=== PATIENT | male | born 1955 | race Two or more races ===

== ENCOUNTER 2020-02-13 15:02 | Inpatient (IN) | payer MEDICAID ==
[~2020-02-13] VITALS: Ht 167.6 cm; Wt 66.7 kg
--- NOTE | 2020-02-13 15:02 | NUR ---
PT BIBRA FROM CONSTRUCTION SITE C/O R HIP AND LEG PAIN S/P GLF. PT IS AAOX4, NOT IN RESPIRATORY DISTRESS, HOOKED TO NUCLEAR FUELS RESEARCH ENGINEER, KEPT RESTED AND COMFORTABLE. AWAITING ER MD CHI.
--- NOTE | 2020-02-13 15:20 | NUR ---
IV LINE ESTABLISHED BLOOD DRAWN AND SENT TO LAB.
--- NOTE | 2020-02-13 15:46 | NUR ---
SEEN AND EXAMINED BY .
[2020-02-13] MEDS ORDERED: FENTANYL PF 100MCG/2ML AMPUL ONE (15:49)
[2020-02-13] MEDS ORDERED: TDAP [DIPH/PERTUSSIS/TET] 0.5 ML VIAL IM ONE ×2 (15:49→16:00)
--- NOTE | 2020-02-13 15:54 | NUR ---
PT IS WHEELED TO CT SCAN VIA [facility].
[2020-02-13] MEDS ORDERED: FENTANYL PF 100MCG/2ML AMPUL IM ONE (16:00)
--- NOTE | 2020-02-13 17:01 | NUR ---
CALLED ORTHO [phone] ITS JAQUELIN
[2020-02-13] MEDS ORDERED: LIDOCAINE 1%-EPI 1:100,000 20 ML VIAL ONE (17:05)
--- NOTE | 2020-02-13 17:24 | NUR ---
AT BEDSIDE FOR SUTURING.
--- NOTE | 2020-02-13 17:35 | NUR ---
COVID SWAB OBTAINED AND SENT TO LAB.
[2020-02-13 17:59] LABS: BASOPHILS % (AUTO) 0.6 % (0.0-2.0); EOSINOPHILS % (AUTO) 0.4 % (0.0-6.0); HEMATOCRIT 32 % (39-51); HEMOGLOBIN 10.5 g/dL (13.5-17.5); LYMPHOCYTES # (AUTO) 2.3 /CMM (0.8-4.8); LYMPHOCYTES % (AUTO) 27.6 % (20.0-44.0); MEAN CORPUSCULAR HGB CONC 33 g/dl (31.0-36.0); MEAN CORPUSCULAR VOLUME 100 fL (80-96); MONOCYTES # (AUTO) 0.6 /CMM (0.1-1.30); MONOCYTES % (AUTO) 6.8 % (2.0-12.0); NEUTROPHILS # (AUTO) 5.5 /CMM (1.8-8.9); NEUTROPHILS % (AUTO) 64.6 % (43.0-81.0); PLATELET COUNT (AUTO) 212 /CMM (150-450); RED BLOOD CELL COUNT(AUTO) 3.16 MIL/uL (4.5-6.0); WHITE BLOOD COUNT (AUTO) 8.5 K/uL (4.3-11.0)
[2020-02-13] MEDS ORDERED: HYDROMORPHONE 1 MG/1 ML DISP.SYRIN IV ONE (18:00)
[2020-02-13 18:09] LABS: CALCIUM, SERUM 7.9 mg/dL (8.5-10.1); CREATININE 0.7 mg/dL (0.6-1.3); POTASSIUM 3.2 mmol/L (3.5-5.1)
[2020-02-13] MEDS ORDERED: HYDROMORPHONE 1 MG/1 ML DISP.SYRIN ONE (18:22)
--- NOTE | 2020-02-13 18:30 | NUR ---
[facility] PAGED
[2020-02-13] MEDS ORDERED: IV NS 0.9% 500 ML BAG IV ONE (19:00)
--- NOTE | 2020-02-13 19:21 | NUR ---
RESTING COMFORTABLY. VSS.
--- NOTE | 2020-02-13 19:43 | NUR ---
ER TALKING TO MICHOACANO LONDON DNP REGARDING PT ADMISSION.
--- NOTE | 2020-02-13 19:51 | NUR ---
ASKED PT WHERE HE LIVES, PT STATED IN AN APT IN [place]. I ASKED PT TO PROVIDE ADDRESS, PT STATED HE DOES NOT REMEMEBR,.
--- NOTE | 2020-02-13 19:53 | NUR ---
M/S 308-2
--- NOTE | 2020-02-13 20:27 | NUR ---
REPORT GIVEN TO M/S ALFA SALAZAR. WILL TRANSPORT PT TO M/S 308-2.
[2020-02-13 20:30] VITALS: BP 99/54
--- NOTE | 2020-02-13 20:30 | NUR ---
MS/RN NEW ADMISSION NOTES RECEIVED PATIENT ON A GURNEY ACCOMPANIED BY ER ATTENDANT, IVORIAN SPEAKING, ALERT X2, RESPIRATIONS EVEN AND UNLABORED, WITH RIGHT HIP FX DIAGNOSIS BY MD LONDON DUE TO FALL IN CONSTRUCTION SITE WHILE HE WAS PUTTING ON HIS CLOTHES AND THAT HE DRANK SOME ALCOHOL REPORTED, WITH NO HOME MEDICATION REPORTED, POTASSIUM LEVEL AT 3.2, DVT SCORE OF 5 AND MD ORDER FOR NPO AT MIDNIGHT, BELONGINGS CHECKED WITH RING, WATCH AND SOME ESPINAL THAT PATIENT WANTS TO BE KEPT AT BEDSIDE, ALSO HAS CELLPHONE, PAIN OF 8 TO LEVEL. MD ACCEPTING IS MICHOACANO LONDON. BED LOCKED, CALL LIGHTS WITHIN REACH, ROOM ORIENTATION PROVIDED. BED ALARM ON.
--- NOTE | 2020-02-13 21:00 | NUR ---
MS/RN NOTES IV SITE ON LEFT AC PATENT WITH IV NS TO INFUSE AT 75 ML/HR PER MD.
--- NOTE | 2020-02-13 21:51 | NUR ---
MS/RN NOTES PATIENT WITH ORDER TO INSERT MICHELE CATHETER DUE TO FX ON HIP.
[2020-02-13] MEDS ORDERED: IV NS 0.9% 1,000 ML IV PRN (22:05)
[2020-02-13] MEDS ORDERED: ZOLPIDEM TARTRATE 5 MG TABLET PO PRN (22:30)
[2020-02-13] MEDS ORDERED: MAG HYDROX/AL HYDROX/SIMETH 30 ML UDC PO PRN (22:30)
[2020-02-13] MEDS ORDERED: MAGNESIUM HYDROXIDE 30 ML UDC PO PRN (22:30)
[2020-02-13] MEDS ORDERED: ONDANSETRON HCL/PF 4 MG/2 ML VIAL IVP PRN (22:30)
[2020-02-13] MEDS ORDERED: Z GUARD REMEDY 2 OZ OINT TP PRN (22:30)
[2020-02-13] MEDS ORDERED: ACETAMINOPHEN 325 MG TABLET PO PRN (22:30)
--- NOTE | 2020-02-13 22:35 | NUR ---
PER MD ORDER DVT SCORE AT 5, ORDER LOVENOX 40 SQ EVERY 12 HR. AND POTASSIUM LEVEL AT 3.2 TO ORDER KDUR 40 MEQ PO. NPO AT MIDNIGHT.
[2020-02-13] MEDS ORDERED: POTASSIUM CHLORIDE 20 MEQ TAB.PRT.SR PO ONE (23:00)
[2020-02-13] MEDS: HYDROCODONE/APAP 10/325MG TABLET PO PRN (23:28)
--- NOTE | 2020-02-13 23:29 | NUR ---
norco 10-325 mg po given with water, potassium kdur meq given po with orange juice able to tolerate. to monitor
--- NOTE | 2020-02-14 01:05 | NUR ---
UNABLE TO INSERT MICHELE AT THIS TIME, PATIENT ABLE TO URINATE WITH URINAL OF 400 ML TOTAL.
[2020-02-14] MEDS ORDERED: CEFAZOLIN 1 GM ONE (01:15)
[2020-02-14] MEDS: HYDROMORPHONE INJ 2 MG/ML DISP.SYRIN IV PRN ×5 (01:51→23:51)
--- NOTE | 2020-02-14 01:53 | NUR ---
MS/RN NOTES PATIENT WITH SEVERE PAIN, MOANING AND GUARDING REPORTED AND OBSERVED, BLOOD PRESSURE AT 130/78, ADMINISTERED PAIN MEDICATION DILAUDID 1 MG/0.5 ML PER ORDER TO MONITOR.
[2020-02-14] MEDS: CEFAZOLIN 1 GM in IV D5W 50 ML IV SCH ×3 (04:02→20:56)
--- NOTE | 2020-02-14 06:16 | NUR ---
308-2 MS/RN NOTES PATIENT ALERT, ORIENTED, CROATIAN SPEAKING, ATTENDED ALL NEEDS, ON ROOM AIR, PAIN MANAGED AND CONTROLLED, SAFETY MEASURES FOLLOWED, BED LOCKED, CALL LIGHTS WITHIN REACH, NPO AND TO ENDORSE TO AM RN FOR PANCHO.
[2020-02-14 06:49] LABS: BASOPHILS % (AUTO) 0.4 % (0.0-2.0); EOSINOPHILS % (AUTO) 0.7 % (0.0-6.0); HEMATOCRIT 30 % (39-51); LYMPHOCYTES # (AUTO) 1.9 /CMM (0.8-4.8); LYMPHOCYTES % (AUTO) 20.3 % (20.0-44.0); MEAN CORPUSCULAR HGB CONC 34 g/dl (31.0-36.0); MEAN CORPUSCULAR VOLUME 99 fL (80-96); MONOCYTES # (AUTO) 0.7 /CMM (0.1-1.30); MONOCYTES % (AUTO) 7.5 % (2.0-12.0); NEUTROPHILS # (AUTO) 6.5 /CMM (1.8-8.9); NEUTROPHILS % (AUTO) 71.1 % (43.0-81.0); PLATELET COUNT (AUTO) 205 /CMM (150-450); RED BLOOD CELL COUNT(AUTO) 3.02 MIL/uL (4.5-6.0); WHITE BLOOD COUNT (AUTO) 9.1 K/uL (4.3-11.0)
--- NOTE | 2020-02-14 07:49 | NUR ---
MS/RN Opening note Patient received from caustic cresylate shift superintendent. A/0 X2-3, npo at this time until seen by orthopedic surgeon. Heplock to left AC flushing well with normal saline. Vital signs stable, no fevers noted. Call light within reach, aware of how to use and call for help. Bed in low setting, side rails x3 in upright position, will continue to monitor and ensure safety.
[2020-02-14 08:00] VITALS: BP 120/78
[2020-02-14] MEDS: DOCUSATE SODIUM 100 MG CAPSULE PO SCH ×2 (08:06→16:16)
--- NOTE | 2020-02-14 08:07 | NUR ---
MS/trailer steerer held MS/RN Lovenox held Lovenox held until patient seen by surgeon.
[2020-02-14] MEDS ORDERED: ENOXAPARIN SODIUM 40 MG/0.4 ML DISP.SYRIN SQ SCH (09:00)
[2020-02-14] MEDS ORDERED: POTASSIUM CHLORIDE 20 MEQ TAB.PRT.SR PO SCH (09:00)
[2020-02-14 09:17] LABS: ALBUMIN 2.5 g/dL (3.4-5.0); BILIRUBIN,TOTAL 0.5 mg/dL (0.2-1.0); CALCIUM, SERUM 7.7 mg/dL (8.5-10.1); CREATININE 0.7 mg/dL (0.6-1.3); MAGNESIUM 1.8 mg/dL (1.8-2.4); PHOSPHORUS 3.5 mg/dL (2.5-4.9); POTASSIUM 4.1 mmol/L (3.5-5.1); TOTAL PROTEIN, SERUM 6.3 g/dL (6.4-8.2)
[2020-02-14 09:33] LABS: THYROID STIMULATING HORMONE 5.089 uIU/mL (0.358-3.74)
[2020-02-14 09:52] LABS: IRON, SERUM 52 ug/dl (50-175); TOTAL IRON BINDING CAPACITY 198 ug/dl (250-450)
[2020-02-14 10:38] LABS: FERRITIN 889 ng/mL (8-388)
--- NOTE | 2020-02-14 11:00 | NUR ---
MS/RN S/B Guerrero Peters Seen by ortho - patient to be scheduled for surgery, orders for consent yet to be given. Diet ordered, will call kitchen for early lunch tray.
--- NOTE | 2020-02-14 13:17 | NUR ---
10:05am This SW met with the patient at bedside for a homeless consult. Patient was alert and oriented x4. Patient is a 64-year-old male, primarily [place] speaking. This SW conducted the manager social assessment in [place]. Patient presented to [facility] ER by rescue ambulance for hip and leg pain, patient is currently in [facility]. Patient confirmed demographics on face sheet including date of . Patient reported to this SW that he does not know his current address as he moved to this new apartment 2 months ago. Patient reports his apartment is on [address]. Patient reports that he is living in a very small room with a foldable bed, an electrical stove top, and a bathroom. Patient reports nothing else in his new home. Patient reports that he moved in 2 months ago, currently paying $150 a month in rent following his job loss four months ago, due to COVID-19. Patient resides alone, independent with ADLs and IADLs. Patient reports that he has 3 children in [place], 1 child in [place], and 3 children in [facility]. Patient provided this SW with childrens names in [place]: Ry, Shanae, and Julia. Patient could not provide contact information for his children stating, No lo suzango, esta en stephon agenda en ma apartamento (I dont have their numbers, they are in an agenda in my apartment). Patient states that he asks for money from his children and his children provide it to him. Patient explained to this SW that after his job loss, he cannot obtain a job as patient feels employers only see his sutton hair and age on an application solo [facility] ma edad. This SW asked the patient if he receives any type of assistance from the government. Patient reports to this SW that he does not qualify due to his residency status. Patients tone changed when he stated that this loss has been difficult for him and wants more. This SW acknowledged this by affirming the patients desires to do better. Patient informed this SW that he does drink alcohol, approximately 3-4 beers a day, mostly Thursday and Sundays (you need to clarify this, is it daily? Or is it Saturdays and Sundays?). Patient reports that he has diabetes and for this reason, he has tried to cut down his consumption. Patient denies drug use. Patient reports cigarette use, reporting a 24-pack of cigarettes can last him 2-3 days. Patient did inform this SW that it is a part of his daily routine with his first cup of coffee every morning. Patient did express wanting to stop but did not know what the best option for him is. Patient denies visual and auditory hallucinations. Patient denies suicidal and homicidal ideations. Patient asked this SW for resources including food martinez/pantries for him to have at least some canned goods in his home and resources to stop smoking in [place]. This SW to return with those resources for the patient. Activities Coordinator to remain available for all needs regarding this patient.
--- NOTE | 2020-02-14 15:05 | NUR ---
MS/RN Consent Patient consented for surgery tomorrow (IM rodding of right hip). All three consent forms signed and placed in front of chart. Reinforced to patient that he will by NPO from midnight.
[2020-02-14 16:00] VITALS: BP 136/76
--- NOTE | 2020-02-14 18:26 | NUR ---
MS/RN End note Patient remains in stable condition, no new needs expressed at this time. Pain well controlled, has turned and repsoitioned with some assist as much as pain allows. Consent forms signed ready for surgert tomorrow. Will endorse to shift foreman.
--- NOTE | 2020-02-14 19:23 | NUR ---
Patient is alert, speaks Hungarian only. States he is currently living alone in a rental room. Prior to admission, he was ambulatory and independent with adl's. Has no DME or homehealth reported. Current plan for hip fx surgery. Will need DME and rehab post surgery, patient is currently pending Medical only. Addendum: 02/14/20 at 1924 by ALVIN JONES RN Amended: Links added.
[2020-02-14 20:00] VITALS: BP 112/78
--- NOTE | 2020-02-14 20:00 | NUR ---
MS/RN OPENING NOTES PATIENT IN BED, AWAKE, ALERT X3, [place] SPEAKING ON ROOM AIR, HAD EATEN DINNER, ABLE TO DRINK FLUIDS, REQUIRE ASSISTANCE FOR SAFETY PATIENT HAS RIGHT FEMUR FRACTURE, PLAN FOR SURGERY SCHEDULED LORENZO AND CONSENT HAS BEEN SIGNED, NPO AFTER MIDNIGHT, PROCEDURE BY SURGEON ARCHANA ACUNA. MONITORED FOR ANY CHANGES, BED LOCKED, CALL LIGHTS WITHIN REACH IV SITE LEFT AC PATENT TO MONITOR.
--- NOTE | 2020-02-14 21:00 | NUR ---
IV SITE ON LEFT AC REMOVED DUE TO DISLODGE, REINSERTED ON DIFFERENT SITE ON RIGHT AC GAUGE 22 ONE TIME AND PATIENT TOLERATED WELL. PATENT WITH GOOD BLOOD RETURN.
--- NOTE | 2020-02-14 23:54 | NUR ---
MS/RN NOTES PATIENT ON SEVERE PAIN, MOANING GUARDING, REPORTED 10/10 PAIN ON RIGHT HIP. DIALUDID PRN 0.5ML/1MG IVP SLOW PUSH GIVEN TO MONITOR,B/P CHECK AT 132/77, PULSE RATE AT 110.TO MONITOR EFFECTIVENESS.
[2020-02-15] VITALS (8 sets, daily range): BP systolic 102–133; BP diastolic 59–84
[2020-02-15] MEDS: CEFAZOLIN 1 GM in IV D5W 50 ML IV SCH ×2 (04:09→12:39)
[2020-02-15] MEDS: HYDROMORPHONE INJ 2 MG/ML DISP.SYRIN IV PRN ×4 (04:26→23:32)
--- NOTE | 2020-02-15 04:30 | NUR ---
MS/RN NOTES PATIENT AWOKEN FROM SLEEP WITH SEVERE PAIN, MOANING AND GRIMACING. 10/ LEVEL, B/P CHECK AT 117/73 AND PULSE 101. MONITOR NEEDED MEDICATION DILAUDID 0.5 ML AT 1 MG ADMINISTERED.
--- NOTE | 2020-02-15 06:08 | NUR ---
308-2 MS/RN NOTES PATIENT ALERT, ORIENTED X3, SPANINSH SPEAKING ABLE TO VERBALZIED NEEDS, PAIN MANAGED AND EFFECTIVE, IV SITE ON RIGHT UPPER ARM W/ NO S/S OF REDNESS, NPO AFTER MIDNIGHT, ATTENDED ALL NEEDS, SAFETY MEASURES PLACED,BED LOCKED, CALL LIGHTS WITHIN REACH, EDUCATED ON PAIN MEDICATION SIDE EFFECT. VERBALIZED UNDERSTANDING,BED LOCKED, CALL LIGHTS WITHIN REACH.WILL ENDORSE TO AM RN FOR PANCHO.
[2020-02-15 07:21] LABS: BASOPHILS # (AUTO) 0.1 /CMM (0.0-0.2); BASOPHILS % (AUTO) 0.5 % (0.0-2.0); EOSINOPHILS % (AUTO) 0.9 % (0.0-6.0); HEMATOCRIT 27 % (39-51); HEMOGLOBIN 9.1 g/dL (13.5-17.5); LYMPHOCYTES # (AUTO) 1.9 /CMM (0.8-4.8); LYMPHOCYTES % (AUTO) 17.2 % (20.0-44.0); MEAN CORPUSCULAR HGB CONC 34 g/dl (31.0-36.0); MEAN CORPUSCULAR VOLUME 99 fL (80-96); MONOCYTES # (AUTO) 0.9 /CMM (0.1-1.30); MONOCYTES % (AUTO) 8.3 % (2.0-12.0); NEUTROPHILS % (AUTO) 73.1 % (43.0-81.0); PLATELET COUNT (AUTO) 183 /CMM (150-450); RED BLOOD CELL COUNT(AUTO) 2.73 MIL/uL (4.5-6.0); WHITE BLOOD COUNT (AUTO) 10.9 K/uL (4.3-11.0)
--- NOTE | 2020-02-15 07:44 | NUR ---
MS RN OPENING NOTES RECEIVED PATIENT IN BED, ASLEEP. PATIENT BREATHING ON ROOM AIR; BREATHING IS EVEN AND UNLABORED; NO SOB NOTED AT THIS TIME. NO SIGNS OF PAIN SUCH FACIAL GRIMACING OR MOANING AT THE MOMENT. NPO SINCE MIDNIGHT. RAC IV ACCESS G # 22 PRESENT AND INTACT. SAFETY PRECAUTIONS IN PLACE; BED IN LOW POSITION AND LOCKED, RAILS UP X2, CALL LIGHT WITHIN REACH. WILL CONTINUE TO MONITOR PATIENT.
[2020-02-15 07:51] LABS: ALBUMIN 2.3 g/dL (3.4-5.0); BILIRUBIN,TOTAL 0.6 mg/dL (0.2-1.0); CALCIUM, SERUM 7.8 mg/dL (8.5-10.1); CREATININE 0.6 mg/dL (0.6-1.3); MAGNESIUM 1.8 mg/dL (1.8-2.4); PHOSPHORUS 2.9 mg/dL (2.5-4.9); POTASSIUM 3.8 mmol/L (3.5-5.1)
[2020-02-15] MEDS: DOCUSATE SODIUM 100 MG CAPSULE PO SCH ×2 (08:01→16:33)
[2020-02-15] MEDS ORDERED: IV NS 0.9% 1,000 ML IV PRN (09:30)
--- NOTE | 2020-02-15 11:28 | NUR ---
MS RN NOTES PATIENT IS KYRGYZ SPEAKING; WAS MOANING. ASKED IF HE WANTS PAIN MEDICATION PATIENT SAID "SI". WHEN ABOUT TO ADMINISTER PAIN MEDICATION PATIENT SAID NO. MEDICATION WASTED WITH 2 RNs.
--- NOTE | 2020-02-15 12:30 | NUR ---
MS RN NOTES PATIENT IN PAIN; R HIP. REQUESTING PAIN MEDICATION. PRN DILAUDID ADMINISTERED PER MD ORDER. WILL CONTINUE TO MONITOR.
[2020-02-15] MEDS ORDERED: FENTANYL PF 250MCG/5ML AMPUL ONE (17:59)
[2020-02-15] MEDS ORDERED: MIDAZOLAM HCL 2 MG/2ML VIAL ONE (17:59)
--- NOTE | 2020-02-15 18:56 | NUR ---
MS RN CLOSING NOTES PATIENT IN BED, AWAKE AND AWAITING SURGERY. PATIENT BREATHING ON ROOM AIR; BREATHING IS EVEN AND UNLABORED; NO SOB NOTED DURING THE SHIFT. PAIN MANAGED WITH PRN PAIN MEDICATION. NPO SINCE MIDNIGHT. RAC IV ACCESS G # 22 PRESENT AND INTACT INFUSING NS @ 75 MLS/HR. ALL NEEDS ATTENDED TO THROUGHOUT THE DAY. SAFETY PRECAUTIONS IN PLACE; BED IN LOW POSITION AND LOCKED, RAILS UP X2, CALL LIGHT WITHIN REACH. WILL ENDORSE TO CONTACT FINGER ASSEMBLER NURSE.
--- NOTE | 2020-02-15 19:19 | NUR ---
MS RN NOTES PATIENT IN PAIN 02/15 REQUESTING PAIN MEDICATION. PRN PAIN MEDICATION GIVEN PER MD ORDER.
--- NOTE | 2020-02-15 19:35 | NUR ---
MS RN NOTES RECEIVED ON BED A/O X3,MOANS IN PAIN ON RIGHT HIP,NPO STATUS,GOING FOR RIGHT HIP INTRA MEDULLARY RODDING,AWAITING TO BE BILL HIKER.SALINE LOCK RIGHT AC INTACT AND PATENT.NS AT 75ML/HR RATE IN PROGRESS.LAST PAIN MANAGEMENT GIVEN AT 1920.
--- NOTE | 2020-02-15 19:40 | NUR ---
MS RN NOTES CERTIFIED ADDICTION COUNSELOR BY SURGERY CREW AT THIS TIME
--- NOTE | 2020-02-15 22:30 | NUR ---
MS RN NOTES BACK FROM SURGERY,S/P RIGHT HIP INTRAMEDULLARY RODDING ,DRESSING INTACT AND DRY.ICE PACK IN PLACE ON SURGICAL SITE.MICHELE CATH IN PLACE DRAINING YELLOWISH OUTPUT.SALINE LOCK RIGHT AC INTACT AND PATENT.LEFT HAND SALINE LOCK INTACT AND DRY.
[2020-02-15] MEDS ORDERED: CEFAZOLIN 1 GM ONE ×2 (23:20→23:22)
--- NOTE | 2020-02-15 23:32 | NUR ---
MS RN NOTES PAIN MANAGEMENT C/O PAIN RIGHT HIP 10/10 ON PAIN SCALE.MEDICATED WITH DILAUDID 1MG IV ORDERED FOR SEVERE PAIN.
[2020-02-15] MEDS: CEFAZOLIN 1 GM VIAL IV SCH (23:39)
--- NOTE | 2020-02-15 23:45 | NUR ---
MS RN NOTES CLAIMED HE'S HUNGRY,GIVEN SANDWICH AND APPLE JUICE,ATE WELL.NEGATIVE FOR ASPIRATION
--- NOTE | 2020-02-16 | NUR ---
MS RN NOTES STARTED ON ANCEF 2MG IVPB X 2 DOSES,FIRST DOSE HUNG AT 2039.
[2020-02-16] MEDS: HYDROMORPHONE INJ 2 MG/ML DISP.SYRIN IV PRN ×4 (03:41→21:46)
--- NOTE | 2020-02-16 03:41 | NUR ---
MS RN NOTES C/O RIGHT HIP PAIN 9/10 ON PAIN SCALE,MEDICATED WITH DILAUDID 1MG IV ORDERED FOR SEVERE PAIN.
[2020-02-16 04:00] VITALS: BP 117/70
[2020-02-16] MEDS: CEFAZOLIN 1 GM VIAL IV SCH (05:00)
[2020-02-16] MEDS ORDERED: IV LR 1000 ML 1,000 ML IV PRN (05:30)
--- NOTE | 2020-02-16 06:32 | NUR ---
MS RN NOTES ON BED CALM AND QUIET,IVF LR AT 75ML/HR RATE IN PROGRESS,MAY CONVERT TO SALINE LOCK IF EATING.MICHELE CATH IN PLACE.LOVENOX 40MG SQ TO START POST OF DAY ONE.RIGHT HIP DRESSING DRY AND INTACT.PAIN MANAGEMENT EFFECTIVE.CALL LIGHT IN REACH,NEEDS ATTENDED.WILL ENDORSE TO DAY NURSE FOR PANCHO.
[2020-02-16 06:51] LABS: BASOPHILS % (AUTO) 0.2 % (0.0-2.0); EOSINOPHILS % (AUTO) 0.1 % (0.0-6.0); HEMATOCRIT 25 % (39-51); HEMOGLOBIN 8.4 g/dL (13.5-17.5); LYMPHOCYTES # (AUTO) 0.9 /CMM (0.8-4.8); LYMPHOCYTES % (AUTO) 11.4 % (20.0-44.0); MEAN CORPUSCULAR HGB CONC 34 g/dl (31.0-36.0); MEAN CORPUSCULAR VOLUME 99 fL (80-96); MONOCYTES # (AUTO) 0.5 /CMM (0.1-1.30); MONOCYTES % (AUTO) 5.9 % (2.0-12.0); NEUTROPHILS # (AUTO) 6.5 /CMM (1.8-8.9); NEUTROPHILS % (AUTO) 82.4 % (43.0-81.0); PLATELET COUNT (AUTO) 183 /CMM (150-450); WHITE BLOOD COUNT (AUTO) 7.9 K/uL (4.3-11.0)
[2020-02-16 07:00] LABS: CALCIUM, SERUM 7.6 mg/dL (8.5-10.1); CREATININE 0.7 mg/dL (0.6-1.3)
--- NOTE | 2020-02-16 07:30 | NUR ---
ms rn received on bed, awake,alert,oriented x3,not in any form of distress, respirations even and unlabored,no sob noted.bloom to gravity w/ yellowish urine output.s/p right hip sx, w/ dressing clean and dry, denies pain at this time, all needs attended.
[2020-02-16 08:00] VITALS: BP 114/74
[2020-02-16] MEDS: DOCUSATE SODIUM 100 MG CAPSULE PO SCH ×2 (09:10→17:07)
--- NOTE | 2020-02-16 09:20 | NUR ---
MS GRIMM BREAKFAST SERVED,DUE MEDS GIVEN,TOLERATED WELL.
[2020-02-16] MEDS ORDERED: DEXTROSE 50%-WATER 50 ML DISP.SYRIN IV PRN (11:00)
[2020-02-16] MEDS: BLOOD SUGAR DIAGNOSTIC 1 EACH STRIP IN SCH ×3 (11:36→21:10)
[2020-02-16] MEDS: INSULIN REGULAR, HUMAN 100 UNIT/ML 3 ML VIAL SQ PRN ×3 (11:38→21:22)
[2020-02-16 16:00] VITALS: BP 118/75
--- NOTE | 2020-02-16 18:16 | NUR ---
MS RN ON BED, NO DISTRESS NOTED ,ALL NEEDS ATTENDED.
--- NOTE | 2020-02-16 19:45 | NUR ---
MS RN NOTES RECEIVED ON BED EATING HI DINNER FOOD.SALINE LOCK RIGHT AC AND LEFT HAND INTACT AND PATENT.MICHELE CATH IN PLACE DRAINING YELLOWISH OUTPUT.S/P RIGHT HIP INTRAMEDULLARY RODDING YESTERDAY 02/[address] DYE[address]DRESSING INTACT AND DRY.RIGHT LOWER CAST INTACT ELEVATED ON PILLOWS.WILL CONTINUE TO MONITOR FOR PAIN MANAGEMENT.CALL LIGHT IN REACH,NEEDS ANTICIPATED.
[2020-02-16 20:00] VITALS: BP 121/69
[2020-02-16] MEDS ORDERED: ENOXAPARIN SODIUM 40 MG/0.4 ML DISP.SYRIN SQ SCH (21:00)
--- NOTE | 2020-02-16 21:30 | NUR ---
MS RN NOTES ACCU-CHECK BLOOD SUGAR CHECK 266,COVERED WITH HUMULIN R 6 UNITS PER SLIDING SCALE.
--- NOTE | 2020-02-16 21:46 | NUR ---
MS RN NOTES PAIN MANAGEMENT C/O PAIN ON RIGHT HIP AND RIGHT LOWER LEG 10/10 ON PAIN SCALE,,MEDICATED WITH DILAUDID 1MG IV ORDERED
[2020-02-17] MEDS: HYDROMORPHONE INJ 2 MG/ML DISP.SYRIN IV PRN ×2 (05:24→10:52)
--- NOTE | 2020-02-17 05:24 | NUR ---
MS RN NOTES PAIN MANAGEMENT C/O RIGHT HIP/LEG PAIN 9/10 ON PAIN SCALE.MEDICATED WITH DILAUDID 1MG IV ORDERED FOR SEVERE PAIN,REPOSITIONED.
--- NOTE | 2020-02-17 05:40 | NUR ---
MS RN NOTES ACCU-CHECK BLOOD SUGAR CHECK 338,HAS BEEN EATING AT NIGHT WITH BREAD AND JUICE.JOSUÉ COVER WITH HUMULIN R 8 UNITS PER SLIDING SCALE.
[2020-02-17] MEDS: BLOOD SUGAR DIAGNOSTIC 1 EACH STRIP IN SCH (05:44)
[2020-02-17] MEDS: INSULIN REGULAR, HUMAN 100 UNIT/ML 3 ML VIAL SQ PRN ×3 (05:46→16:50)
[2020-02-17 06:33] LABS: BASOPHILS # (AUTO) 0.2 /CMM (0.0-0.2); BASOPHILS % (AUTO) 2.3 % (0.0-2.0); EOSINOPHILS % (AUTO) 0.7 % (0.0-6.0); HEMATOCRIT 23 % (39-51); HEMOGLOBIN 7.7 g/dL (13.5-17.5); LYMPHOCYTES # (AUTO) 1.4 /CMM (0.8-4.8); LYMPHOCYTES % (AUTO) 17.6 % (20.0-44.0); MEAN CORPUSCULAR HGB CONC 34 g/dl (31.0-36.0); MEAN CORPUSCULAR VOLUME 99 fL (80-96); MONOCYTES # (AUTO) 0.9 /CMM (0.1-1.30); MONOCYTES % (AUTO) 11.4 % (2.0-12.0); NEUTROPHILS # (AUTO) 5.4 /CMM (1.8-8.9); PLATELET COUNT (AUTO) 218 /CMM (150-450); RED BLOOD CELL COUNT(AUTO) 2.28 MIL/uL (4.5-6.0); WHITE BLOOD COUNT (AUTO) 7.9 K/uL (4.3-11.0)
--- NOTE | 2020-02-17 06:45 | NUR ---
MS RN NOTES SLEPT WITH INTERVALS,PAIN MANAGEMENT ADMINISTERED.SALINE LOCK X2 INTACT AND PATENT,MICHELE CATH IN PLACE.DRESSING TO SURGICAL SITE INTACT AND DRY.POSSIBLE TRANSFER FOR HIGHER LEVEL OF CARE DUE TO COMPLEXITY OF OF RIGHT ANKLE FRACTURE,CASE MANAGEMENT LOOKING FOR A PLACE.WILL ENDORSE TO DAY NURSE FOR PANCHO.
[2020-02-17 07:05] LABS: ALBUMIN 1.9 g/dL (3.4-5.0); BILIRUBIN,TOTAL 0.5 mg/dL (0.2-1.0); CALCIUM, SERUM 7.7 mg/dL (8.5-10.1); CREATININE 0.7 mg/dL (0.6-1.3); MAGNESIUM 1.9 mg/dL (1.8-2.4); PHOSPHORUS 2.9 mg/dL (2.5-4.9); POTASSIUM 3.7 mmol/L (3.5-5.1); TOTAL PROTEIN, SERUM 5.7 g/dL (6.4-8.2)
--- NOTE | 2020-02-17 07:45 | NUR ---
MS/RN NOTE THE PATIENT IS RECEIVED IN BED. THE PATIENT IS ALERT AND ORIENTED X3. DENIES SOB. RESPIRATION REGULAR AND UNLABORED. IN ROOM AIR. DENIES PAIN. THE PATIENT IS IN NO APPARENT DISTRESS. THE PATIENT IS NOTED WITH RIGHT LOWER EXTREMITY SPLINT. NO S/S POOR CIRCULATION ON THE EXTREMITIES. DENIES TINGLING OR NUMBNESS. RAC G 20 AND LEFT HAND G 20 PATENT AND SALINE LOCKED. MICHELE CATH PRESENT AND DRAINING CLEAR, YELLOW COLOR URINE. NO BLADDER DISTENSION NOTED. BED LOW AND LOCKED. SIDE RAILS UP X3. CALL LIGHT WITHIN REACH. WILL CONTINUE TO MONITOR.
[2020-02-17 08:00] VITALS: BP 106/60
[2020-02-17] MEDS: DOCUSATE SODIUM 100 MG CAPSULE PO SCH ×2 (08:23→16:51)
[2020-02-17] MEDS: HYDROCODONE/APAP 10/325MG TABLET PO PRN ×2 (08:24→16:55)
--- NOTE | 2020-02-17 08:34 | NUR ---
MS/RN NOTE PER PATIENT HE HAD BOWEL MOVEMENT LAST NIGHT.
[2020-02-17] MEDS ORDERED: DEXTROSE 50%-WATER 50 ML DISP.SYRIN IV PRN (09:30)
[2020-02-17] MEDS ORDERED: *INSULIN REGULAR(HUMULIN R)HUM 100 UNIT/ML VIAL SQ PRN (09:30)
[2020-02-17] MEDS ORDERED: Blood Sugar Diagnostic VI (09:32)
[2020-02-17] MEDS ORDERED: Insulin Glargine,Hum SQ (09:32)
[2020-02-17] MEDS ORDERED: ENOX40DI SQ (09:32)
[2020-02-17] MEDS ORDERED: *INS REG SQ (09:32)
[2020-02-17] MEDS ORDERED: Hydrocodone/Apap 10/325MG PO (09:32)
[2020-02-17] MEDS ORDERED: DEXT50DI8 IV (09:32)
[2020-02-17 09:56] LABS: LYMPHOCYTES % (MANUAL) 3 % (16-48); MONOCYTES % (MANUAL) 1 % (0-11.0); NEUTROPHILS % (MANUAL) 96 (42-76)
--- NOTE | 2020-02-17 11:36 | NUR ---
MS/RN NOTE RECEIVED AN ORDER FROM LALITA WHITTAKER FOR PT ALON. NOTED AND CARRIED OUT.
[2020-02-17] MEDS: BLOOD SUGAR DIAGNOSTIC 1 EACH STRIP VI SCH ×2 (11:45→16:50)
--- NOTE | 2020-02-17 15:53 | NUR ---
MS/RN NOTE REPORT GIVEN TO NURSE JAYDEN GARDNER [facility] (FLOOR 8).
--- NOTE | 2020-02-17 17:55 | NUR ---
MS/RN NOTE THE PATIENT STATED RIGHT HIP PAIN 6/10 AFTER TAKING NORCO 10/325 1 TAB PO (1 HOUR PASS), HOWEVER, THE PATIENT REFUSES OTHER PAIN MEDICATION AT THIS TIME. WILL CONTINUE TO MONITOR.
--- NOTE | 2020-02-17 18:27 | NUR ---
MS/RN NOTE THE PATIENT IS ALERT AND ORIENTED X3. IN STABLE CONDITION. DISCHARGE EDUCATION PROVIDED AND THE PATIENT VERBALIZED UNDERSTANDING. THE PATIENT LEFT THE HOSPITAL ON A GURNEY AND IN STABLE CONDITION.
[2020-02-17] MEDS ORDERED: INSULIN GLARGINE, 100 UNIT/ML CARTRIDGE SQ SCH (22:00)
== END 2020-02-17 18:21 | disposition short-term general hospital (02) | DRG 308 ==
LOC: ER 15:09 → MED 20:02
PROVIDERS: ADMIT Hospitalist; ATTEND Nurse Practitioner Acute Care
PROC: 0QS606Z Reposition Right Upper Femur with Intramedullary Internal Fixation Device, Open Approach (ICD-10-PCS; principal; 2020-02-13)
DX: S72.141A Displaced intertrochanteric fracture of right femur, initial encounter for closed fracture (principal); W19.XXXA Unspecified fall, initial encounter; Y93.H3 Activity, building and construction; Y92.69 Other specified industrial and construction area as the place of occurrence of the external cause; E11.9 Type 2 diabetes mellitus without complications; D53.9 Nutritional anemia, unspecified; E87.6 Hypokalemia; E87.1 Hypo-osmolality and hyponatremia; E11.65 Type 2 diabetes mellitus with hyperglycemia; S01.111A Laceration without foreign body of right eyelid and periocular area, initial encounter; Z79.4 Long term (current) use of insulin; S92.061A Displaced intraarticular fracture of right calcaneus, initial encounter for closed fracture; E86.1 Hypovolemia; I67.2 Cerebral atherosclerosis; M50.30 Other cervical disc degeneration, unspecified cervical region
CPT/HCPCS: 36415; 70450-TC; 71045-TC; 72125-TC; 73501; 73502; 73552; 73564-TC; 73590-TC; 73610-TC; 73630-TC; 80048-TC; 80053-TC; 80061-TC; 82728-TC; 82962-TC; 83540-TC; 83735-TC; 84100-TC; 84443-TC; 85025-TC; 85730-TC; 86850-TC; 87081-TC; 90715; 93307-TC; A6209; C1713; C9803-CS; G0378; J0690; J1170; J1650; J1815; J2250; J2405; J2704; J2765; J3010; J3490; J7030; J7050; J7060; J7120